=== PATIENT | male | born 1945 | race Caucasian/White ===

== ENCOUNTER 2016-10-07 06:05 | Emergency (ER) | payer OTHER, MEDICARE ==
[2016-10-07 06:12] VITALS: PULSE 79; RESP 16; TEMP 98.4; O2SAT 93
[2016-10-07 06:31] VITALS: BP 143/62
--- NOTE | 2016-10-07 06:41 | EDPHY ---
H & P Stated Complaint: shaky, nauseated, withdrawal from oxycodone/methadone, last dose 10/04 Time Seen by Provider: 10/07/16 06:35 HPI/ROS: HPI The patient presents with pain which has been worsening over the last 1 week after he stopped taking methadone 35 mg and Oxy Contin 90 mg daily. He has a history of chronic pain has been followed by the [facility], however 1 week ago he was discharged from the clinic and stop taking his meds cold turkey. He has had progressively worsening pain, nausea, abdominal cramping ever since. He is taking Tylenol occasionally for the pain.. REVIEW OF SYSTEMS Constitutional: No fever, no chills. Eyes: No discharge. ENT: No sore throat. Cardiovascular: No chest pain, no palpitations. Respiratory: No cough, no shortness of breath. Gastrointestinal: No abdominal pain, no vomiting. Genitourinary: No hematuria. Musculoskeletal: Positive for back pain. Skin: No rashes. Neurological: No headache. PMHx: Diabetes, hypertension, on home O2 Soc Hx: Lives at home with his PHYSICAL General Appearance: Alert, anxious Eyes: Pupils equal and round no pallor or injection ENT, Mouth: Mucous membranes moist Respiratory: There are no retractions, lungs are clear to auscultation Cardiovascular: Regular rate and rhythm Gastrointestinal: Abdomen is soft and non-tender, no masses, bowel sounds normal Neurological: A&O, moves all extremities Skin: Warm and dry, no rashes Musculoskeletal: Neck is supple non tender Extremities: symmetrical, full range of motion Psychiatric: Patient is oriented X 3, there is no agitation Source: Patient Exam Limitations: No limitations - Personal History Current Tetanus/Diphtheria Vaccine: Yes - Medical/Surgical History Hx Asthma: No Hx Chronic Respiratory Disease: No Hx Diabetes: Yes Hx Cardiac Disease: Yes Hx Renal Disease: No Hx Cirrhosis: No Hx Alcoholism: No Hx HIV/AIDS: No Hx Splenectomy or Spleen Trauma: No Other PMH: Diabetes, HTN, chronic back pain, lung scarring - Social History Smoking Status: Former smoker Constitutional: Initial Vital Signs Temperature (C) 36.9 C 10/07/16 06:06 Heart Rate 79 10/07/16 06:06 Respiratory Rate 16 10/07/16 06:06 O2 Sat (%) 93 10/07/16 06:06 O2 Delivery Mode Nasal Cannula O2 (L/minute) 2.5 Allergies/Adverse Reactions: tramadol HCl [From Ultram] Allergy (Verified 10/07/16 06:12) NSAIDS Allergy (Uncoded 10/07/16 06:12) Home Medications: Medication Instructions Recorded Ascorbic Acid [Vitamin C 500 mg 1,500 mg PO DAILY 06/08/11 (*)] Aspirin [Aspirin 81mg (*)] 81 mg PO DAILY 06/08/11 Bethanechol [Urecholine (*)] 50 mg PO QID 06/08/11 Citalopram Hydrobromide 60 mg PO DAILY 06/08/11 [Citalopram HBr 40 MG] Docusate Sodium [Colace 100 MG (*)] 100 mg PO BID PRN 06/08/11 Fish Oil/Dha/Epa [Fish Oil 1,200 1 each PO DAILY 06/08/11 mg Fish Oil] Glucosam/Chondr/Collagn/Hyalur 2 each PO DAILY 06/08/11 [Glucosamine & Chondroitin Cap] MIRTAZAPINE [Remeron 45 mg] 90 mg PO HS 06/08/11 Magnesium Oxide [Magnesium Oxide 800 mg PO BID 06/08/11 400 mg (*)] Multivitamin with Minerals [Icaps 1 each PO DAILY 06/08/11 Plus] Pharmacy Completed 06/08/11 06/08/11 Psyllium Seed [Metamucil] 5.85 gm PO DAILY 06/08/11 Simvastatin [Zocor 5 mg] 5 mg PO DAILY18 06/08/11 Vitamin B Complex [Vitamin B 1 each PO DAILY 06/08/11 Complex (OTC)] oxyCODONE CR [Oxycontin] 160 mg PO BID 06/08/11 traZODone [traZODONE 100MG (*)] 100 mg PO HS 06/08/11 Lisinopril [Zestril 5 mg (*)] 5 mg PO DAILY #0 tab 06/09/11 Metoprolol Tartrate [Lopressor 25 12.5 mg PO BID #0 tab 06/09/11 mg (*)] amLODIPine BESYLATE [Norvasc 5 mg 5 mg PO DAILY #0 tab 06/09/11 (*)] levOFLOXACIN [levAQUIN (*)] 750 mg PO DAILY@1000 #0 tab 06/09/11 Diazepam [Valium 10 MG (*)] 5 - 10 mg PO TID 06/10/11 Furosemide [Lasix 20 MG (*)] 20 mg PO DAILY #30 tab 06/10/11 Glimepiride [Amaryl 1 MG (*)] 1 mg PO DAILY #30 tab 06/10/11 Glimepiride [Amaryl 1 MG (*)] 1 mg PO DAILY #30 tab 06/10/11 HYDROmorphone HCL [EXALGO] 8 mg PO Q6 PRN #0 06/10/11 clonIDINE [Catapres (*)] 0.1 mg PO Q4H PRN #30 tab 10/07/16 Medical Decision Making - Diagnostics EKG Interpretation: EKG: Complete interpretation has been separately recorded in the [facility] archive. Summary impression: Normal sinus rhythm Differential Diagnosis: This is a 70-year-old man with history of longstanding opiate use for chronic pain, last week discharge from his pain clinic now off of all of his medications including methadone and OxyContin. He is experiencing symptoms of withdrawal including abdominal pain, worsening pain. Id Differential diagnosis includes opiate withdrawal, less likely acute injury. In the emergency room, the patient was given a dose of clonidine to help with his withdrawal symptoms. I explained that we cannot prescribe any opiates for him given his history. He has been referred other pain clinics where he can follow up. He is interested in possible detox and I have put in a referral for the disability case manager. He was instructed to follow up with his primary care doctor as well. - Data Points Medications Given: Discontinued Medications Clonidine (Catapres) 0.2 mg PO EDNOW ONE Stop: 10/07/16 06:36 Last Admin: 10/07/16 06:50 Dose: 0.2 mg Departure - Departure Disposition: Home, Routine, Self-Care Clinical Impression: Opiate withdrawal Condition: Good Instructions: Chronic Pain (ED) Additional Instructions: You need to contact your primary care provider for help with your symptoms. I have put in a referral for our disability case manager for some information for detox for you. For your pain, you can take Tylenol 1 g every 6 hours. Referrals: DEANA MALLOY [Primary Care Provider] - As per Instructions Prescriptions: clonIDINE [Catapres (*)] 0.1 mg PO Q4H PRN #30 tab PRN Reason: Pain, Breakthrough
--- NOTE | 2016-10-07 07:06 | CPEKG ---
Heart Rate: 63 RR Interval: 952 P-R Interval: 192 QRSD Interval: 100 QT Interval: 412 QTC Interval: 422 P [place]: 19 QRS [place]: -4 T Wave [place]: 71 EKG Severity - BORDERLINE ECG - EKG Impression: SINUS RHYTHM EKG Impression: LOW VOLTAGE IN FRONTAL LEADS Electronically Signed By: Zabrina Wolfe 07-Oct-2016 07:16:09
== END 2016-10-07 07:23 | disposition home or self-care (01) ==
DX: F11.20 Opioid dependence, uncomplicated (principal); I10 Essential (primary) hypertension; E11.9 Type 2 diabetes mellitus without complications; Z79.82 Long term (current) use of aspirin; Z87.891 Personal history of nicotine dependence

== ENCOUNTER → 2018-06-27 | Outpatient (CLI) | payer OTHER, MEDICARE | LOC: BHFA 13:30 | PROVIDERS: ATTEND Internal Medicine Cardiovascular Disease | DX: R06.02 Shortness of breath (principal); I25.10 Atherosclerotic heart disease of native coronary artery without angina pectoris | CPT/HCPCS: 78452; 93017; A9500; J2785 ==